=== PATIENT | male | born 1995 | race Caucasian/White ===

== ENCOUNTER 2021-03-29 02:36 | Emergency (ER) | payer OTHER, SELFPAY ==
--- NOTE | ~2021-03-29 | XR_ITS ---
EXAMINATION: XR FOOT, RIGHT CLINICAL INFORMATION: Trauma COMPARISON: None TECHNIQUE: AP, lateral, and oblique views of the right foot. XR/XR foot RT min 3V FINDINGS/IMPRESSION: There is an acute cortical avulsion fracture involving the lateral base of the second distal phalanx. No additional fractures. No dislocation. Soft tissue swelling dorsal to the forefoot. No radiopaque foreign bodies.
[2021-03-29 03:05] VITALS: BP 140/78; PULSE 87; RESP 16; TEMP 37.2; O2SAT 98; BMI 23.9
--- NOTE | 2021-03-29 03:17 | PC.NURSE ---
Pt right foot is warm palpable pulses, able to wiggle his toes.
--- NOTE | 2021-03-29 05:39 | ED.LOWEXIN ---
HPI - Extremity Injury (Lower) General Chief Complaint: Extremity Injury, Lower Stated Complaint: R Foot Inj/Work Inj Time Seen by Provider: 03/29/21 05:26 Source: patient Mode of arrival: ambulatory Limitations: no limitations History of Present Illness HPI Narrative: 26-year-old male who presents emergency department for evaluation of injuries to his right foot that he sustained at work. Patient states that his foot was run over by a power [employer] that was loaded with 250 lb of water bottles and use. The patient states that he had pain in his toes after the injury but he was still able to walk. He states the pain got worse and he took his sock off and noted that his 2nd 3rd and 4th toes wore bruised and swollen. The patient states that he has been able to walk but he was concerned about the swelling and bruising so came to the emergency department for evaluation. The patient works at [employer]. Related Data Allergies Allergy/AdvReac Type Severity Reaction Status Date / Time No Known Allergies Allergy Unverified 03/03/20 19:12 [No Known Allergies*] Review of Systems Review of Systems: Yes all other systems are reviewed and are negative [facility] Past Medical History [facility] Narrative: Past medical history: Asthma. Past surgical history: None. Social history: He works at [employer]. He smokes 1 pack of cigarettes per day times 4 years. Denies alcohol use. He denies drug use. Social History Social History Alcohol intake: never Patient Tobacco Use Status: Current everyday Tobacco user Use of substances other than those prescribed or required for medical reasons: No Advance Directives: No Advance Directives Information Provided: No Physical Exam Vital Signs: Vital Signs: Last Vital Signs Temp 98.9 F 03/29/21 03:05 Pulse 87 03/29/21 03:05 Resp 16 03/29/21 03:05 BP 140/78 H 03/29/21 03:05 Pulse Ox 98 03/29/21 03:05 Body Mass Index 23.9 Const: General: cooperative and healthy appearing Orientation/consciousness: oriented to person Limitations: no limitations Neuro: General: oriented to person Extrem: Other: The patient has ecchymosis over the 2nd 3rd and 4th toes with tenderness palpation of these areas, his increase tenderness palpation of the distal phalanx of the 2nd toe. Patient's extremities neurovascular intact. Is no tenderness palpation of his foot. Course Course Course Narrative: 26-year-old male who presents emergency department for evaluation of injury of his right foot after his foot was run over by a power dixie loaded with 250 lb of water and juice. The patient does have ecchymosis and swelling of the 2nd, 3rd and 4th toes. X-rays were obtained and radiology reading is as follows: There is an acute cortical avulsion fracture involving the lateral base of the second distal phalanx. No additional fractures. No dislocation. Soft tissue swelling dorsal to the forefoot. No radiopaque foreign bodies. I did review these x-rays with the patient. The patient's 1st 2nd and 3rd toes were johnny-taped. The patient was given a note not return to work for 2 days and then he will need to follow-up with an occupational health clinic determine his return to work status. Patient was discharged with verbal and printed instructions. He is advised to take Tylenol and ibuprofen for his pain. Discharge Plan Discharge Clinical Impression: Closed fracture of distal phalanx of toe of right foot Crushing injury of second toe of right foot Qualifiers: Encounter type: initial encounter Qualified Code(s): S97.121A - Crushing injury of right lesser toe(s), initial encounter Crushing injury of third toe of right foot Qualifiers: Encounter type: initial encounter Qualified Code(s): S97.121A - Crushing injury of right lesser toe(s), initial encounter Crushing injury of fourth toe of right foot Qualifiers: Encounter type: initial encounter Qualified Code(s): S97.121A - Crushing injury of right lesser toe(s), initial encounter Patient Disposition: Home, Self-Care Instructions: Crush Injury (ED), Toe Fracture (ED) Additional Instructions: You have a small fracture at the base of the 2nd toe distal phalanx You have a crush injury to the 2nd 3rd and 4th toes. Johnny-tape the 1st 2nd and 3rd toes for 1 week. Take ibuprofen 200 mg pills, 3 pills every 6 hours as needed for pain. Take Tylenol (acetaminophen) 500 mg pills, 2 pills every 4 to 6 hours as needed for pain. Follow-up with your doctor or an occupational health clinic in 2 days. Please return to the emergency department if your symptoms get worse or if you develop any symptoms that are concerning to you. See work note Stand Alone Forms: Work/School Release
[2021-03-29 06:07] VITALS: BP 120/66; PULSE 69; RESP 18; TEMP 36.8; O2SAT 99
== END 2021-03-29 06:09 | disposition home or self-care (01) ==
PROVIDERS: Emergency Provider Emergency Medicine Emergency Medical Services
DX: S92.531A Displaced fracture of distal phalanx of right lesser toe(s), initial encounter for closed fracture (principal); S97.121A Crushing injury of right lesser toe(s), initial encounter; W31.89XA Contact with other specified machinery, initial encounter; Y93.9 Activity, unspecified; Y92.512 Supermarket, store or market as the place of occurrence of the external cause; Y99.0 Civilian activity done for income or pay
CPT/HCPCS: 73630; 99284

== ENCOUNTER 2021-11-11 07:11 | Emergency (ER) | payer SELFPAY ==
--- NOTE | ~2021-11-11 | XR_ITS ---
EXAMINATION: XR CHEST CLINICAL INFORMATION: Rales on exam. COMPARISON: None TECHNIQUE: 2 views of the chest were obtained. FINDINGS: The lungs are clear. The cardiomediastinal silhouette is normal in size. There is no pleural effusion or pneumothorax. No acute osseous abnormality. XR/XR chest 2V IMPRESSION: No acute cardiopulmonary findings.
[2021-11-11 07:38] VITALS: BP 120/82; PULSE 70; RESP 16; TEMP 36.2; O2SAT 99; BMI 23.6
[2021-11-11 07:54] LABS: MANUAL DIFF FLAG NO
[2021-11-11 07:55] LABS: Basophils Percent Auto 0.7 % (0-2); Eosinophils Absolute Auto 0.4 X10*3/uL (0.0-0.4); Eosinophils Percent Auto 5.7 % (0-4); Hematocrit 47.8 % (42.0-52.0); Hemoglobin 16.3 g/dl (14.0-18.0); Imm Gran Abs Auto 0.01 X10*3/uL (0.00-0.03); Imm Gran Pct Auto 0.2 % (0.0-0.4); Lymphocytes Absolute Auto 1.8 X10*3/uL (1.2-4.9); Mean Corpuscular HGB Conc 34.1 g/dl (31.0-36.0); Mean Corpuscular Hemoglobin 31.8 pg (27.0-33.0); Mean Corpuscular Volume 93.2 fL (80.0-98.0); Mean Platelet Volume 9.5 fL (9.4-12.4); Monocytes Absolute Auto 0.5 X10*3/uL (0.1-1.2); Monocytes Percent Auto 8.3 % (2-11); Neutrophils Absolute Auto 3.4 x10*3/uL (2.0-8.3); Neutrophils Percent Auto 55.1 % (45-73); Platelet Count 169 X10*3/uL (160-400); Red Blood Count 5.13 X10*6/uL (4.60-5.80); Red Cell Distribution Width 12.5 % (11.0-16.0); White Blood Count 6.1 X10*3/uL (4.8-10.8)
[2021-11-11 08:10] LABS: COVID-19 Test Negative (Negative); IDNOW Serial# 16C4AD1C; Influenza A Negative (Negative); Influenza B2 Negative (Negative)
[2021-11-11 08:17] LABS: Alanine Aminotransferase 21 U/L (0-40); Albumin Level 4.3 g/dL (3.5-5.0); Alkaline Phosphatase 71 U/L (39-117); Anion Gap 12 (12-20); Aspartate Amino Transferase 20 U/L (5-37); Bilirubin Total 0.6 mg/dL (0.0-1.0); Blood Urea Nitrogen 12 mg/dL (9-16); Calcium 9.7 mg/dL (8.4-10.2); Carbon Dioxide 23 mmol/L (22-29); Chloride 108 mmol/L (96-108); Creatinine Clr Calc Pharmacy 104.5; Estimated Glomerular Filt Rate > 60; Glucose Random 104 mg/dL (60-115); Potassium 5.3 mmol/L (3.3-5.1); Sodium 138 mmol/L (135-145); Total Protein 7.1 g/dL (6.5-8.0)
--- NOTE | 2021-11-11 09:05 | ED_ITS ---
HPI - General Adult General Chief complaint: General Medical Stated complaint: COVID Symptoms Time Seen by Provider: 11/11/21 09:05 Source: patient Mode of arrival: ambulatory Limitations: no limitations History of Present Illness HPI narrative: 26-year-old male presents for fever, nausea, nasal congestion, and very mild shortness of breath. Patient does have a history of asthma, he has an inhaler at home that he last used 3 days ago. Patient had a negative COVID test at home. Patient states that 5 days ago he started feeling nauseous and did not want to eat. Four days ago he started with nasal congestion, a fever and sweats. States that his fever ran for 3 days off and on and was as high as 102.3. States his fever broke yesterday. He is afebrile now with a fever [employer] house [employer]. He has had diarrhea every day, 3 times a day, but no stool today. Denies cough, chest pain, sore throat, ear pain. Denies dizziness, weakness, lightheadedness, syncope, dysuria, dark tarry or bloody stools Denies hormone use, prior blood clot, recent surgery or trauma, coughing up blood, unilateral leg swelling. Patient has no primary care provider, tells me he is sitting up [facility] this week, I will refer him to [facility] for primary care per Related Data Previous Rx's Medication Instructions Recorded albuterol sulfate 90 mcg/actuation 2 puff INHALATION Q4-6H PRN #8.5 g 11/11/21 aerosol inhaler ondansetron 4 mg disintegrating 4 mg PO Q8H PRN #9 tab 11/11/21 tablet Allergies Allergy/AdvReac Type Severity Reaction Status Date / Time No Known Allergies Allergy Unverified 03/03/20 19:12 [No Known Allergies*] Review of Systems Constitutional: Constitutional: Denies body ache(s), Denies chills, Reports fatigue, Reports fever(s), Denies headache(s), Denies malaise and Denies weakne ss Eyes: Eyes: Denies diplopia ENT: Denies vertigo, Denies dizziness, Denies otalgia, Denies headache(s), Denies post nasal drip, Denies sinus pain, Denies sinus pressure and Denies sore throat Cardiovascular: Cardiovascular: Denies chest pain, Denies syncope, Denies leg edema, Denies lightheadedness, Denies Loss of Consciousness, Denies palpitations and Reports dyspnea ( Slight Slight Slight per patient) Respiratory: Respiratory: Denies chest congestion, Denies cough, Denies hemoptysis, Denies excessive phlegm production, Denies pain on inspiration, Denies pain with cough, Reports dyspnea ( Slight Slight Slight per patient) and Denies wheezing Gastrointestinal: Gastrointestinal: Denies abdominal pain, Denies melena, Denies hematochezia, Denies coffee ground emesis, Denies constipation, Reports diarrhea, Reports nausea and Denies vomiting Genitourinary: Genitourinary: Reports no additional male genitourinary complaints Musculoskeletal: Musculoskeletal: Reports no additional musculoskeletal complaints Neurologic: Denies confusion, Denies vertigo, Denies dizziness, Denies syncope, Denies headache(s) and Denies weakness Psychiatric: Psychiatric: Denies anxiety, Denies confusion and Denies depression Endocrine: Endocrine: Reports fatigue and Denies palpitations Allergic/Immunologic: Allergic/Immunologic: Denies wheezing [facility] Past Medical History [facility] Narrative: asthma Social History Social History Alcohol intake: never Patient Tobacco Use Status: Current everyday Tobacco user Advance Directives: No Advance Directives Information Provided: No Physical Exam ED Vital Signs: Vital Signs - 24 hr 11/11/21 07:38 11/11/21 09:57 Temperature 97.1 F Pulse Rate 70 78 Respiratory Rate 16 18 Blood Pressure 120/82 Pulse Oximetry 99 BMI result Body Mass Index 23.6 Const General: healthy appearing, comfortable, no acute distress, well developed, alert and awake; No confusion Nutritional Appearance: well nourished Orientation/consciousness: patient oriented x3 and No confusion Limitations: no limitations HENMT Head: Yes normal to inspection, Yes normocephalic and Yes atraumatic Ears: hearing grossly normal bilaterally, external ears normal, TM's normal bilaterally and EAC's normal General nose exam: Normal external nose present Face and sinus: Yes normal facial exam and Yes sinuses nontender Mouth: Normal oral and palatal mucosa present Throat: Yes posterior oropharynx normal Eyes Conjunctivae: conjunctivae normal Pupils: Equal, round and reactive pupils present EOM: EOMs intact bilaterally Neck Neck: Yes full ROM, Yes no lymphadenopathy and Yes supple Resp Effort & Inspection: normal respiratory effort and able to speak in complete sentences Auscultation: clear to auscultation bilaterally, no crackles, rales diffuse (fine), rhonchi (mild) throughout and no wheezes Cardio Rate: regular rate Rhythm: regular rhythm Heart sounds: S1 normal heart sound present and S2 normal heart sound present GI Inspection: Yes normal to inspection Palpation (GI): Soft to palpation, nontender, no guarding and not rigid Percussion: Yes normal to percussion Auscultation: normal bowel sounds Skin General skin exam: no rashes or lesions noted Neuro General: patient oriented x3 and No confusion Cranial nerves: Yes Equal, round and reactive pupils present Extrem General: Yes normal to inspection and Yes full ROM Psych Appearance: grossly normal Affect: normal affect Attitude: cooperative Thought process: Normal thought process present Course Course Course Narrative: 26-year-old male with no primary care provider presents for 5 days of viral-like symptoms, including fever, nausea anorexia, nasal congestion, and very slight shortness of breath. Patient does have a history of asthma and has not been using his inhaler regularly during this illness. On exam, patient has stable vitals, is well appearing, lungs have faint rhonchi and/or fine rales. Will get chest x-ray, give albuterol inhaler. Patient's labs are remarkable only for a hyperkalemia of 5.3. May be hemolyzed. Will repeat BMP. Patient is negative for COVID, negative for flu. Patient does PERC out, and is a 0 on the Wells score for PE Reevaluation(s) Reevaluation #1: FINDINGS: The lungs are clear. The cardiomediastinal silhouette is normal in size. There is no pleural effusion or pneumothorax. No acute osseous abnormality. XR/XR chest 2V IMPRESSION: No acute cardiopulmonary findings. Repeat BMP shows potassium within normal limits. Chest x-ray is clear. Will send patient home with prescription for Zofran, albuterol inhaler, counseled BRAT diet Medical Decision Making Lab Data Result diagrams: 11/11/21 07:49 11/11/21 09:52 Labs: Lab Results 11/11/21 11/11/21 11/11/21 Range/Units 07:49 07:49 07:49 WBC 6.1 (4.8-10.8) X10*3/uL RBC 5.13 (4.60-5.80) X10*6/uL Hgb 16.3 (14.0-18.0) g/dl Hct 47.8 (42.0-52.0) % MCV 93.2 (80.0-98.0) fL MCH 31.8 (27.0-33.0) pg MCHC 34.1 (31.0-36.0) g/dl RDW 12.5 (11.0-16.0) % Plt Count 169 (160-400) X10*3/uL MPV 9.5 (9.4-12.4) fL Immature Gran % (Auto) 0.2 (0.0-0.4) % Neut % (Auto) 55.1 (45-73) % Lymph % (Auto) 30.0 (20-40) % Barbour % (Auto) 8.3 (2-11) % Eos % (Auto) 5.7 H (0-4) % Baso % (Auto) 0.7 (0-2) % Lymph # (Auto) 1.8 (1.2-4.9) X10*3/uL Barbour # (Auto) 0.5 (0.1-1.2) X10*3/uL Eos # (Auto) 0.4 (0.0-0.4) X10*3/uL Baso # (Auto) 0.0 (0.0-0.2) X10*3/uL Abs Immat Gran (auto) 0.01 (0.00-0.03) X10*3/uL Absolute Neuts (auto) 3.4 (2.0-8.3) x10*3/uL Absolute Nucleated RBC 0.000 (0.0-0.012) X10*3/uL Nucleated RBC % (auto) 0.0 (0.0-0.2) /100WBC Sodium 138 (135-145) mmol/L Potassium 5.3 H (3.3-5.1) mmol/L Chloride 108 (96-108) mmol/L Carbon Dioxide 23 (22-29) mmol/L Anion Gap 12 (12-20) BUN 12 (9-16) mg/dL Creatinine 1.01 (0.5-1.4) mg/dL Estim Creat Clear Calc 104.5 Estimated GFR > 60 Random Glucose 104 (60-115) mg/dL Calcium 9.7 (8.4-10.2) mg/dL Total Bilirubin 0.6 (0.0-1.0) mg/dL AST 20 (5-37) U/L ALT 21 (0-40) U/L Alkaline Phosphatase 71 (39-117) U/L Total Protein 7.1 (6.5-8.0) g/dL Albumin 4.3 (3.5-5.0) g/dL COVID-19 (BRENDA) (Negative) COVID-19 Clin Com Influenza Type A (JEFF) Negative (Negative) Influenza Type B (JEFF) Negative (Negative) Influenza A & B Note See Note 11/11/21 11/11/21 Range/Units 07:49 09:52 WBC (4.8-10.8) X10*3/uL RBC (4.60-5.80) X10*6/uL Hgb (14.0-18.0) g/dl Hct (42.0-52.0) % MCV (80.0-98.0) fL MCH (27.0-33.0) pg MCHC (31.0-36.0) g/dl RDW (11.0-16.0) % Plt Count (160-400) X10*3/uL MPV (9.4-12.4) fL Immature Gran % (Auto) (0.0-0.4) % Neut % (Auto) (45-73) % Lymph % (Auto) (20-40) % Barbour % (Auto) (2-11) % Eos % (Auto) (0-4) % Baso % (Auto) (0-2) % Lymph # (Auto) (1.2-4.9) X10*3/uL Barbour # (Auto) (0.1-1.2) X10*3/uL Eos # (Auto) (0.0-0.4) X10*3/uL Baso # (Auto) (0.0-0.2) X10*3/uL Abs Immat Gran (auto) (0.00-0.03) X10*3/uL Absolute Neuts (auto) (2.0-8.3) x10*3/uL Absolute Nucleated RBC (0.0-0.012) X10*3/uL Nucleated RBC % (auto) (0.0-0.2) /100WBC Sodium 139 (135-145) mmol/L Potassium 4.3 (3.3-5.1) mmol/L Chloride 107 (96-108) mmol/L Carbon Dioxide 23 (22-29) mmol/L Anion Gap 13 (12-20) BUN 11 (9-16) mg/dL Creatinine 0.92 (0.5-1.4) mg/dL Estim Creat Clear Calc 114.7 Estimated GFR > 60 Random Glucose 112 (60-115) mg/dL Calcium 9.7 (8.4-10.2) mg/dL Total Bilirubin (0.0-1.0) mg/dL AST (5-37) U/L ALT (0-40) U/L Alkaline Phosphatase (39-117) U/L Total Protein (6.5-8.0) g/dL Albumin (3.5-5.0) g/dL COVID-19 (BRENDA) Negative (Negative) COVID-19 Clin Com See Note Influenza Type A (JEFF) (Negative) Influenza Type B (JEFF) (Negative) Influenza A & B Note Discharge Plan Discharge Clinical Impression: Acute viral syndrome Patient Disposition: Home, Self-Care Instructions: Viral Syndrome (ED) Additional Instructions: You tested negative for COVID, negative for flu, U chest x-ray is normal, your potassium is normal Please rest, push fluids, take Tylenol, I have prescribed Zofran to take every 8 hours as needed for nausea I have prescribed another albuterol inhaler, please use 2 puffs every 4 hours while you are awake for the next 3-4 days. A diet that is easy to digest in his binding for your stools is bananas, rice, applesauce, toast I have referred you to [facility] so you can get set up with a primary care provider once you get [place] health insurance in place Please return to emergency room for any new or concerning symptoms Prescriptions: New albuterol sulfate 90 mcg/actuation HFA aerosol inhaler 2 puff inhalation Q4-6H PRN (Reason: shortness of breath or wheezing) Qty: 8.5 0RF ondansetron 4 mg tablet,disintegrating 4 mg PO Q8H PRN (Reason: nausea and vomiting) Qty: 9 0RF Referrals: [facility] [Provider Group] Stand Alone Forms: Work/School Release
[2021-11-11] MEDS: Albuterol Sulfate 90 MCG 8 GM INHALER 2 PUFF INHALE (09:55)
[2021-11-11 09:57] VITALS: PULSE 78; RESP 18; O2SAT 98
[2021-11-11 10:14] LABS: Anion Gap 13 (12-20); Blood Urea Nitrogen 11 mg/dL (9-16); Calcium 9.7 mg/dL (8.4-10.2); Carbon Dioxide 23 mmol/L (22-29); Chloride 107 mmol/L (96-108); Creatinine Clr Calc Pharmacy 114.7; Estimated Glomerular Filt Rate > 60; Glucose Random 112 mg/dL (60-115); Potassium 4.3 mmol/L (3.3-5.1); Sodium 139 mmol/L (135-145)
== END 2021-11-11 10:46 | disposition home or self-care (01) ==
PROVIDERS: Physician Assistant; Emergency Provider Emergency Medicine
DX: B34.9 Viral infection, unspecified (principal); R06.02 Shortness of breath; F17.200 Nicotine dependence, unspecified, uncomplicated; Z71.6 Tobacco abuse counseling; Z20.822 Contact with and (suspected) exposure to COVID-19; Z79.899 Other long term (current) drug therapy
CPT/HCPCS: 36415; 71046; 80048; 80053; 85025; 87502; 87635; 94664; 99282; 99283